=== PATIENT | male | born 1945 | race Caucasian/White ===

== ENCOUNTER 2017-11-23 03:32 | Emergency (ER) | payer MEDICARE ==
[~2017-11-23] VITALS: Ht 188 cm; Wt 88.5 kg
[~2017-11-23 03:32] MED LIST: Aspir 8181 MG
[2017-11-23 04:15] LABS: BASOPHILS ABSOLUTE AUTO 0.03 K/mm3 (0.00-0.23); BASOPHILS PERCENT AUTO 1 % (0-2); EOSINOPHILS PERCENT AUTO 4 % (0-6); Hematocrit 42.1 % (37.0-53.0); IMMATURE GRAN ABSOLUTE AUTO 0.02 K/mm3 (0.00-0.10); IMMATURE GRAN PERCENT AUTO 0 % (0-1); LYMPHOCYTES ABSOLUTE AUTO 1.57 K/mm3 (0.84-5.20); LYMPHOCYTES PERCENT AUTO 34 % (21-46); MONOCYTES ABSOLUTE AUTO 0.43 K/mm3 (0.16-1.47); MONOCYTES PERCENT AUTO 9 % (4-13); Mean Corpuscular HGB 31.9 pg (26.0-34.0); Mean Corpuscular HGB Conc 33.3 g/dL (31.5-36.5); Mean Corpuscular Volume 96 fL (80-100); Mean Platelet Volume 10.1 fL (9.1-12.4); NEUTROPHILS ABSOLUTE AUTO 2.31 K/mm3 (1.96-9.15); NEUTROPHILS PERCENT AUTO 51 % (41-73); Platelet Count 134 K/mm3 (150-400); RDW Coefficient Variation 11.8 % (11.7-14.2); RDW Standard Deviation 41.1 fL (35.1-46.3); Red Blood Cell Count 4.39 M/mm3 (4.30-5.90); White Blood Cell Count 4.56 K/mm3 (4.00-11.30)
[2017-11-23 04:28] LABS: Alanine Aminotransfer (ALT/SGP 24 U/L (12-78); Albumin, Blood 3.8 g/dL (3.4-5.0); Albumin/Globulin Ratio 1.2 (0.8-1.8); Alk Phos 54 U/L (50-136); Anion Gap 7 mmol/L (6-16); Aspartate Aminotrans (AST/SGOT 23 U/L (12-37); Bilirubin, Total 0.5 mg/dL (0.1-1.0); Blood Urea Nitrogen 19 mg/dL (8-24); Bun/Creatinine Ratio 17.9 (12.0-20.0); CO2, Blood 27 mmol/L (21-32); Calcium, Blood 8.6 mg/dL (8.5-10.1); Chloride, Blood 108 mmol/L (98-108); Creatinine, Blood 1.06 mg/dL (0.60-1.20); Globulin, Blood 3.2 g/dL (2.2-4.0); Glomerular Filtration Rate >60 (60-); Glucose, Blood 88 mg/dL (70-99); Potassium, Blood 3.9 mmol/L (3.5-5.5); Sodium, Blood 142 mmol/L (136-145); Troponin I <0.015 ng/mL (0.000-0.040)
[2017-11-23] MEDS ORDERED: ASPI325 PO (15:36)
[2017-11-23] MEDS ORDERED: NAPR220 PO (20:14)
== END 2017-11-23 06:21 | disposition home or self-care (01) ==
LOC: ER 03:32
PROVIDERS: Emergency Medicine
DX: R07.9 Chest pain, unspecified (principal); Z79.82 Long term (current) use of aspirin; Z87.891 Personal history of nicotine dependence
CPT/HCPCS: 36415; 71046; 80053; 83690; 84484; 85025; 93005; 93010; 96374; 99284; J1885

== ENCOUNTER 2017-11-23 14:57 | Observation (INO) | payer MEDICARE ==
[~2017-11-23] VITALS: Ht 188 cm; Wt 86.0 kg
[2017-11-23 15:30] LABS: BASOPHILS ABSOLUTE AUTO 0.02 K/mm3 (0.00-0.23); BASOPHILS PERCENT AUTO 0 % (0-2); EOSINOPHILS ABSOLUTE AUTO 0.15 K/mm3 (0.00-0.68); EOSINOPHILS PERCENT AUTO 3 % (0-6); Hematocrit 44.1 % (37.0-53.0); Hemoglobin 14.8 g/dL (13.5-17.5); IMMATURE GRAN ABSOLUTE AUTO 0.02 K/mm3 (0.00-0.10); IMMATURE GRAN PERCENT AUTO 0 % (0-1); LYMPHOCYTES ABSOLUTE AUTO 1.31 K/mm3 (0.84-5.20); LYMPHOCYTES PERCENT AUTO 28 % (21-46); MONOCYTES ABSOLUTE AUTO 0.36 K/mm3 (0.16-1.47); MONOCYTES PERCENT AUTO 8 % (4-13); Mean Corpuscular HGB 32.2 pg (26.0-34.0); Mean Corpuscular HGB Conc 33.6 g/dL (31.5-36.5); Mean Corpuscular Volume 96 fL (80-100); NEUTROPHILS PERCENT AUTO 60 % (41-73); Platelet Count 145 K/mm3 (150-400); RDW Coefficient Variation 11.9 % (11.7-14.2); RDW Standard Deviation 41.1 fL (35.1-46.3); Red Blood Cell Count 4.59 M/mm3 (4.30-5.90); White Blood Cell Count 4.66 K/mm3 (4.00-11.30)
[2017-11-23] MEDS ORDERED: ASPI325 PO (15:36)
[2017-11-23 15:49] LABS: Alanine Aminotransfer (ALT/SGP 25 U/L (12-78); Albumin, Blood 4.3 g/dL (3.4-5.0); Albumin/Globulin Ratio 1.3 (0.8-1.8); Alk Phos 60 U/L (50-136); Anion Gap 7 mmol/L (6-16); Aspartate Aminotrans (AST/SGOT 23 U/L (12-37); Bilirubin, Total 0.3 mg/dL (0.1-1.0); Blood Urea Nitrogen 24 mg/dL (8-24); Bun/Creatinine Ratio 19.8 (12.0-20.0); CO2, Blood 29 mmol/L (21-32); Calcium, Blood 8.7 mg/dL (8.5-10.1); Chloride, Blood 104 mmol/L (98-108); Creatinine, Blood 1.21 mg/dL (0.60-1.20); Globulin, Blood 3.3 g/dL (2.2-4.0); Glomerular Filtration Rate >60 (60-); Glucose, Blood 97 mg/dL (70-99); Potassium, Blood 4.2 mmol/L (3.5-5.5); Sodium, Blood 140 mmol/L (136-145); Total Protein, Blood 7.6 g/dL (6.4-8.2)
[2017-11-23] MEDS ORDERED: NAPR220 PO (20:14)
[2017-11-24 07:57] LABS: BASOPHILS ABSOLUTE AUTO 0.02 K/mm3 (0.00-0.23); BASOPHILS PERCENT AUTO 0 % (0-2); EOSINOPHILS ABSOLUTE AUTO 0.05 K/mm3 (0.00-0.68); EOSINOPHILS PERCENT AUTO 1 % (0-6); Hematocrit 41.4 % (37.0-53.0); Hemoglobin 13.8 g/dL (13.5-17.5); IMMATURE GRAN ABSOLUTE AUTO 0.01 K/mm3 (0.00-0.10); IMMATURE GRAN PERCENT AUTO 0 % (0-1); LYMPHOCYTES PERCENT AUTO 14 % (21-46); MONOCYTES ABSOLUTE AUTO 0.42 K/mm3 (0.16-1.47); MONOCYTES PERCENT AUTO 7 % (4-13); Mean Corpuscular HGB 32.1 pg (26.0-34.0); Mean Corpuscular HGB Conc 33.3 g/dL (31.5-36.5); Mean Corpuscular Volume 96 fL (80-100); Mean Platelet Volume 10.5 fL (9.1-12.4); NEUTROPHILS ABSOLUTE AUTO 4.99 K/mm3 (1.96-9.15); NEUTROPHILS PERCENT AUTO 78 % (41-73); Platelet Count 134 K/mm3 (150-400); RDW Coefficient Variation 11.9 % (11.7-14.2); RDW Standard Deviation 41.8 fL (35.1-46.3); White Blood Cell Count 6.39 K/mm3 (4.00-11.30)
[2017-11-24 08:17] LABS: Alanine Aminotransfer (ALT/SGP 22 U/L (12-78); Albumin, Blood 3.7 g/dL (3.4-5.0); Albumin/Globulin Ratio 1.2 (0.8-1.8); Alk Phos 55 U/L (50-136); Anion Gap 4 mmol/L (6-16); Aspartate Aminotrans (AST/SGOT 20 U/L (12-37); Bilirubin, Total 0.5 mg/dL (0.1-1.0); Blood Urea Nitrogen 17 mg/dL (8-24); Bun/Creatinine Ratio 18.3 (12.0-20.0); CO2, Blood 29 mmol/L (21-32); Calcium, Blood 8.6 mg/dL (8.5-10.1); Chloride, Blood 107 mmol/L (98-108); Creatinine, Blood 0.93 mg/dL (0.60-1.20); Globulin, Blood 3.1 g/dL (2.2-4.0); Glomerular Filtration Rate >60 (60-); Glucose, Blood 92 mg/dL (70-99); Potassium, Blood 3.8 mmol/L (3.5-5.5); Sodium, Blood 140 mmol/L (136-145); Total Protein, Blood 6.8 g/dL (6.4-8.2); Troponin I 0.194 ng/mL (0.000-0.040)
[2017-11-25 05:05] LABS: Anion Gap 9 mmol/L (6-16); Blood Urea Nitrogen 17 mg/dL (8-24); Bun/Creatinine Ratio 16.8 (12.0-20.0); CO2, Blood 24 mmol/L (21-32); Calcium, Blood 7.7 mg/dL (8.5-10.1); Chloride, Blood 106 mmol/L (98-108); Creatinine, Blood 1.01 mg/dL (0.60-1.20); Glomerular Filtration Rate >60 (60-); Glucose, Blood 91 mg/dL (70-99); Potassium, Blood 4.1 mmol/L (3.5-5.5); Sodium, Blood 139 mmol/L (136-145)
[2017-11-25] MEDS ORDERED: ATOR40TA PO (11:05)
[2017-11-25] MEDS ORDERED: CLOP75 PO (11:06)
[2017-11-25] MEDS ORDERED: LISI5 PO (11:06)
[2017-11-25] MEDS ORDERED: Nitrostat0.4 MG SL (11:09)
== END 2017-11-25 11:39 | disposition home or self-care (01) ==
LOC: ER 14:57 → PCU 14:58 → ER 14:58 → MEDS 14:58 → PCU 20:26
PROVIDERS: Emergency Medicine; Family Medicine; Internal Medicine Interventional Cardiology
PROC: B2111ZZ Fluoroscopy of Multiple Coronary Arteries using Low Osmolar Contrast (ICD-10-PCS; principal; 2017-11-24)
PROC: 0270346 Dilation of Coronary Artery, One Artery, Bifurcation, with Drug-eluting Intraluminal Device, Percutaneous Approach (ICD-10-PCS; principal; 2017-11-24)
PROC: B241ZZ3 Ultrasonography of Multiple Coronary Arteries, Intravascular (ICD-10-PCS; principal; 2017-11-24)
PROC: 02703DZ Dilation of Coronary Artery, One Artery with Intraluminal Device, Percutaneous Approach (ICD-10-PCS; principal; 2017-11-24)
DX: I25.110 Atherosclerotic heart disease of native coronary artery with unstable angina pectoris (principal); I10 Essential (primary) hypertension; G47.33 Obstructive sleep apnea (adult) (pediatric); H54.8 Legal blindness, as defined in USA; M50.30 Other cervical disc degeneration, unspecified cervical region; M51.37 Other intervertebral disc degeneration, lumbosacral region; R20.2 Paresthesia of skin; J45.909 Unspecified asthma, uncomplicated; Z85.46 Personal history of malignant neoplasm of prostate; Z90.79 Acquired absence of other genital organ(s); Z87.891 Personal history of nicotine dependence; Z79.1 Long term (current) use of non-steroidal anti-inflammatories (NSAID); Z98.890 Other specified postprocedural states; Z98.52 Vasectomy status; Z90.89 Acquired absence of other organs; I95.1 Orthostatic hypotension
CPT/HCPCS: 36415; 71046; 72040; 72070; 80048; 80053; 83690; 84484; 85025; 85347; 85730; 92921; 92978; 92979; 93005; 93010; 93454; 96374; 99152; 99153; 99284; 99285; C1725; C1753; C1769; C1874; C1894; C9600; G0378; J0360; J1644; J1885; J2250; J3010; J7030; J7040; Q9967

== ENCOUNTER → 2018-04-13 | Outpatient (CLI) | payer MEDICARE ==
[~2018-04-13] MED LIST changes: +ASPI325 PO; +ATOR40TA PO; +CLOP75 PO; +LISI5 PO; +NAPR220 PO; +Nitrostat0.4 MG SL
[2018-04-13 18:11] LABS: BASOPHILS ABSOLUTE AUTO 0.02 K/mm3 (0.00-0.23); BASOPHILS PERCENT AUTO 1 % (0-2); EOSINOPHILS ABSOLUTE AUTO 0.18 K/mm3 (0.00-0.68); EOSINOPHILS PERCENT AUTO 5 % (0-6); Hematocrit 37.7 % (37.0-53.0); IMMATURE GRAN ABSOLUTE AUTO 0.01 K/mm3 (0.00-0.10); IMMATURE GRAN PERCENT AUTO 0 % (0-1); LYMPHOCYTES ABSOLUTE AUTO 1.14 K/mm3 (0.84-5.20); LYMPHOCYTES PERCENT AUTO 29 % (21-46); MONOCYTES PERCENT AUTO 10 % (4-13); Mean Corpuscular HGB 33.5 pg (26.0-34.0); Mean Corpuscular HGB Conc 34.5 g/dL (31.5-36.5); Mean Corpuscular Volume 97 fL (80-100); Mean Platelet Volume 10.5 fL (9.1-12.4); NEUTROPHILS ABSOLUTE AUTO 2.21 K/mm3 (1.96-9.15); NEUTROPHILS PERCENT AUTO 56 % (41-73); Platelet Count 131 K/mm3 (150-400); RDW Coefficient Variation 12.1 % (11.7-14.2); Red Blood Cell Count 3.88 M/mm3 (4.30-5.90); White Blood Cell Count 3.96 K/mm3 (4.00-11.30)
[2018-04-13 18:25] LABS: Anion Gap 8 mmol/L (6-16); Blood Urea Nitrogen 26 mg/dL (8-24); CO2, Blood 26 mmol/L (21-32); Calcium, Blood 8.3 mg/dL (8.5-10.1); Chloride, Blood 105 mmol/L (98-108); Creatinine, Blood 1.24 mg/dL (0.60-1.20); Glomerular Filtration Rate 57 (60-); Glucose, Blood 94 mg/dL (70-99); Potassium, Blood 4.5 mmol/L (3.5-5.5); Sodium, Blood 139 mmol/L (136-145)
[2018-04-13 18:26] LABS: Troponin I <0.017 ng/mL (0.000-0.040)
== END ==
LOC: LAB SHORT 18:08
PROVIDERS: Family Medicine
DX: R53.83 Other fatigue (principal)
CPT/HCPCS: 80048; 83880; 84484; 85025

== ENCOUNTER 2019-01-31 05:56 | Day surgery (SDC) | payer MEDICARE ==
[~2019-01-31] VITALS: Ht 188 cm; Wt 88.6 kg
[~2019-01-31 05:56] MED LIST changes: +AMLO5; -ASPI325 PO; +ASPI81CH; -ATOR40TA PO; +LIVALO2 MG; +METO25ER
--- NOTE | 2019-01-31 09:07 | NUR ---
PT RETURN TO RECOVERY AREA AT APPROX 0843. AWAKE, CONVERSING WITH NURSING STAFF. NO BLEEDING OR SWELLING NOTED. NO C/O PAIN OR DISCOMFORT. CURRENTLY SITTING IN RECLINER EATING BREAKFAST (FINGER FOODS). TOLERATING PO INTAKE WELL.
--- NOTE | 2019-01-31 09:13 | NUR ---
PT IS "LEGALLY BLIND" PER . NOTICEABLE ISSUES WITH VISION. PRACTICED WITH CALL LIGHT USAGE FOR ASSISTANCE. PT ABLE TO FEEL/NAVIGATE USE OF CALL LIGHT. CLIPPED TO PILLOW IN LAP.
--- NOTE | 2019-01-31 11:03 | NUR ---
PT HAS NO C/O. RIGHT WRIST STABLE. NO BLEEDING NOTED. CMS INTACT. AT BEDSIDE.
--- NOTE | 2019-01-31 12:35 | NUR ---
2 cc air removed from TR band. Slight ooze. No air instilled.
--- NOTE | 2019-01-31 12:58 | NUR ---
REMAINDER OF AIR REMOVED FROM TR BAND. NO BLEEDING AT SITE.
--- NOTE | 2019-01-31 13:22 | NUR ---
PT TR BAND FULLY DEFLATED AT THIS TIME. INITIAL ATTEMPT APPROX 1 HR AGO UNSUCCESSFUL DUE TO SMALL AMOUNT OF BLEEDING. REINFLATED AND 30 MINUTES LATER ATTEMPTED DEFLATION AGAIN. PT NOW WITH TR BAND FULLY DEFLATED. CLOSE MONITORING TO ENSURE NO FURTHER BLEEDING. REVIEWED DISCHARGE INSTRUCTIONS WITH PATIENT AND , BOTH OF WHOM VERBALIZE UNDERSTANDING OF ALL AND ARE ABLE TO VERBALIZE BACK IMPORTANT POINTS WITH THOROUGH UNDERSTANDING.
--- NOTE | 2019-01-31 14:07 | NUR ---
PT DRESSED SELF WITH ASSISTANCE OF . SMALL AMOUNT OF OOZING AT RIGHT WRIST SITE WITH DIME SIZED HEMATOMA. PRESSURE HELD x 5 MINUTES WITH RESOLUTION OF SYMPTOMS. WOUND DRESSED AND STABILIZED WITH ARM BOARD. RECHECK PRIOR TO DISCHARGE WITH NO FURTHER ISSUES. CMS INTACT TO RIGHT HAND. CAP REFILL BRISK. NO FURTHER SIGNS OF BLEEDING. IV D/C TIP INTACT. D/C HOME WITH TO DRIVE HIM AT THIS TIME.
== END 2019-01-31 14:10 | disposition home or self-care (01) ==
LOC: MHTC 05:56
DX: T82.855A Stenosis of coronary artery stent, initial encounter (principal); I25.10 Atherosclerotic heart disease of native coronary artery without angina pectoris; E78.5 Hyperlipidemia, unspecified; G47.33 Obstructive sleep apnea (adult) (pediatric); N18.9 Chronic kidney disease, unspecified; I67.9 Cerebrovascular disease, unspecified; H54.7 Unspecified visual loss; Z79.82 Long term (current) use of aspirin; Z79.899 Other long term (current) drug therapy; Z87.891 Personal history of nicotine dependence
CPT/HCPCS: 85347; 92978; 93458; 99152; 99153; C1725; C1753; C1769; C1874; C1887; C1894; C9600; J1644; J2250; J3010; J7030; Q9967

== ENCOUNTER 2021-03-04 10:47 | Day surgery (SDC) | payer MEDICARE ==
[~2021-03-04] VITALS: Ht 188 cm; Wt 87.0 kg
== END 2021-03-04 13:37 | disposition home or self-care (01) ==
LOC: ORSCSDS 10:47
PROVIDERS: Internal Medicine Gastroenterology
PROC: 0DBL8ZX Excision of Transverse Colon, Via Natural or Artificial Opening Endoscopic, Diagnostic (ICD-10-PCS; principal; 2021-03-04 12:00)
PROC: 0DBM8ZX Excision of Descending Colon, Via Natural or Artificial Opening Endoscopic, Diagnostic (ICD-10-PCS; principal; 2021-03-04 12:00)
DX: R19.4 Change in bowel habit (principal); Z86.010 Personal history of colon polyps; D12.3 Benign neoplasm of transverse colon; D12.4 Benign neoplasm of descending colon; K64.4 Residual hemorrhoidal skin tags; Z79.899 Other long term (current) drug therapy; Z79.82 Long term (current) use of aspirin; G47.33 Obstructive sleep apnea (adult) (pediatric); I25.10 Atherosclerotic heart disease of native coronary artery without angina pectoris; Z87.891 Personal history of nicotine dependence
CPT/HCPCS: 88305; J2704; J7120

== ENCOUNTER → 2021-07-26 | Outpatient (CLI) | payer MEDICARE ==
[2021-07-26 13:06] LABS: Source, Urine Clean Catch
[2021-07-26 13:53] LABS: Appearance, Urine Clear (Clear); Bilirubin, Urine Neg (Neg); Blood, Urine Neg (Neg); Color, Urine Yellow (P-Yellow); Glucose Qualitative, Urine Neg (Neg); Ketones, Urine Neg (Neg); Leukocyte Esterase, Urine Neg (Neg); Nitrite, Urine Neg (Neg); Protein, Urine Neg (Neg); Urobilinogen, Urine NORM (Normal)
[2021-07-26 14:21] LABS: Creatinine, Urine Random 35.4 mg/dL (27.00-270.00); Protein, Urine Random 7.5 mg/dL (0.0-11.9); Protein/Creat Ratio, Ur Random 0.2
== END | disposition home or self-care (01) ==
LOC: LAB SHORT 13:02
PROVIDERS: Internal Medicine
DX: N18.31 Chronic kidney disease, stage 3a (principal)
CPT/HCPCS: 81003; 82570; 84156

== ENCOUNTER 2022-06-21 09:21 | Inpatient (IN) | payer MEDICARE ==
[~2022-06-21] VITALS: Ht 188 cm; Wt 86.8 kg
[~2022-06-21 09:21] MED LIST changes: -AMLO5; +AMLO5 PO; -ASPI81CH; +ASPI81CH PO; +CARV3.125 PO; +GABA300 PO; -LIVALO2 MG; +LIVALO2 MG PO; +MULVITA PO; +OLME5TAB PO; +VITAMIN D310 MC4 PO
--- NOTE | 2022-06-21 19:21 | NUR ---
ADMIT NOTE PATIENT NEW ADMIT TO UNIT POST OP DAY 0 L REVERSE TOTAL SHOULDER. AQUACEL C/D/I. POLAR PACK AND SLING IN PLACE TO LEFT ARM. PATIENT GROGGY, SLOW TO RESPOND, BUT ANSWERS APPROPRIATELY. PATIENT LEGALLY BLIND. PERSONAL ITEMS, WATER, AND CALL LIGHT ALL PLACED WITHIN REACH AT RIGHT BEDSIDE. PATIENT INSTRUCTED ON USE OF CALL LIGHT. ABLE TO WIGGLE LEFT FINGERS BUT DENIES SENSATION. LEFT HAND WARM. TOLERATING SIPS OF WATER, LR RUNNING THROUGH IV. REPORT GIVEN TO METAL FITTER RN.
--- NOTE | 2022-06-22 04:08 | NUR ---
SHIFT SUMMARY A/O X4- POD1 L REVERSE TOTAL SHOULDER- AQUACEL IN PLACE C/D/I, SLING AND POLAR PACK ALSO IN PLACE. PT REPORTS THAT L HAND IS STARTING TO FEEL LIKE IT IS "TINGLING," AND HE IS ABLE TO MOVE HIS HAND AT THIS TIME. L HAND REMAINS WARM TO TOUCH AND PULSES PRESENT. NO PAIN REPORTED. PT AMBULATED TO THE BATHROOM AND VOIDED WELL. TOLERATING PO INTAKE. VITAL SIGNS STABLE. WILL CONTINUE TO MONITOR AND REPORT TO ONCOMING RN.
[2022-06-22 05:23] LABS: BASOPHILS ABSOLUTE AUTO 0.01 K/mm3 (0.00-0.23); BASOPHILS PERCENT AUTO 0 % (0-2); EOSINOPHILS PERCENT AUTO 0 % (0-6); Hematocrit 39.5 % (37.0-53.0); Hemoglobin 13.2 g/dL (13.5-17.5); IMMATURE GRAN ABSOLUTE AUTO 0.05 K/mm3 (0.00-0.10); IMMATURE GRAN PERCENT AUTO 0 % (0-1); LYMPHOCYTES ABSOLUTE AUTO 0.63 K/mm3 (0.84-5.20); LYMPHOCYTES PERCENT AUTO 5 % (21-46); MONOCYTES ABSOLUTE AUTO 0.52 K/mm3 (0.16-1.47); MONOCYTES PERCENT AUTO 4 % (4-13); Mean Corpuscular HGB 32.8 pg (26.0-34.0); Mean Corpuscular HGB Conc 33.4 g/dL (31.5-36.5); Mean Corpuscular Volume 98 fL (80-100); Mean Platelet Volume 10.1 fL (9.1-12.4); NEUTROPHILS ABSOLUTE AUTO 10.56 K/mm3 (1.96-9.15); NEUTROPHILS PERCENT AUTO 90 % (41-73); Platelet Count 148 K/mm3 (150-400); RDW Coefficient Variation 11.9 % (11.7-14.2); RDW Standard Deviation 42.8 fL (35.1-46.3); Red Blood Cell Count 4.03 M/mm3 (4.30-5.90); White Blood Cell Count 11.77 K/mm3 (4.00-11.30)
[2022-06-22 06:01] LABS: Bun/Creatinine Ratio 21.1 (12.0-20.0); Calcium, Blood 8.6 mg/dL (8.5-10.1); Creatinine, Blood 1.09 mg/dL (0.60-1.20); Potassium, Blood 4.8 mmol/L (3.5-5.5)
[2022-06-22] MEDS ORDERED: Percocet 5-3251 EACH PO (07:51)
--- NOTE | 2022-06-22 09:35 | NUR ---
DISCHARGE NOTE: PATIENT AND WERE EDUCATED ON DISCHARGE INSTRUCTIONS BOTH VERBALIZED UNDERSTANDING OF INSTRUCTIONS. HARD PERSCRIPTION WAS GIVEN TO WHO PLACED IT IN HER PURSE. IV WAS TAKEN OUT AND WNL. PAIN IS MANAGED WITH PO PAIN MEDICATION. LEFT SHOULDER HAS AN AQUACEL THAT IS C/D/I AND HAS HIS ARM IN A SLING. PATIENT IS ABLE TO MOVE FINGERS AND TOES WHEN ASKED. PATIENT IS TOLERATING PO INTAKE AND IS VOIDING. HE IS DRESSED AND HAS ITEMS IN THE ROOM GATHERED. PATIENT IS WALKING OUT TO THE CAR WITH HIS TO BE TAKEN HOME.
== END 2022-06-22 09:30 | disposition home or self-care (01) | DRG 483 ==
LOC: SURS 09:21 → PRE IP 11:00 → SURS 18:30
PROVIDERS: ADMIT Orthopaedic Surgery
PROC: 0RRK00Z Replacement of Left Shoulder Joint with Reverse Ball and Socket Synthetic Substitute, Open Approach (ICD-10-PCS; principal; 2022-06-21 11:00)
DX: M19.012 Primary osteoarthritis, left shoulder (principal); N18.9 Chronic kidney disease, unspecified; G47.33 Obstructive sleep apnea (adult) (pediatric); E78.00 Pure hypercholesterolemia, unspecified; I10 Essential (primary) hypertension; I25.10 Atherosclerotic heart disease of native coronary artery without angina pectoris; D69.6 Thrombocytopenia, unspecified; Z96.1 Presence of intraocular lens; Z98.42 Cataract extraction status, left eye; Z95.5 Presence of coronary angioplasty implant and graft; Z87.891 Personal history of nicotine dependence; Z98.890 Other specified postprocedural states; Z98.52 Vasectomy status; Z79.899 Other long term (current) drug therapy; Z79.82 Long term (current) use of aspirin; Z88.8 Allergy status to other drugs, medicaments and biological substances
CPT/HCPCS: 36415; 73030; 80048; 85025; 97110; 97116; 97162; 97166; 97530; 97535; A9270; C1776; J0171; J0690; J1100; J1885; J2250; J2405; J2704; J3010; J3370; J7120

== ENCOUNTER 2023-05-05 03:52 | Emergency (ER) | payer OTHER ==
[~2023-05-05] VITALS: Ht 188 cm; Wt 86.2 kg
[~2023-05-05 03:52] MED LIST changes: +Percocet 5-3251 EACH PO
[2023-05-05 05:30] LABS: BASOPHILS ABSOLUTE AUTO 0.04 K/mm3 (0.00-0.23); BASOPHILS PERCENT AUTO 1 % (0-2); EOSINOPHILS ABSOLUTE AUTO 0.32 K/mm3 (0.00-0.68); EOSINOPHILS PERCENT AUTO 5 % (0-6); Hematocrit 37.6 % (37.0-53.0); Hemoglobin 12.6 g/dL (13.5-17.5); IMMATURE GRAN ABSOLUTE AUTO 0.03 K/mm3 (0.00-0.10); IMMATURE GRAN PERCENT AUTO 1 % (0-1); LYMPHOCYTES ABSOLUTE AUTO 1.09 K/mm3 (0.84-5.20); LYMPHOCYTES PERCENT AUTO 17 % (21-46); MONOCYTES ABSOLUTE AUTO 0.45 K/mm3 (0.16-1.47); MONOCYTES PERCENT AUTO 7 % (4-13); Mean Corpuscular HGB 32.6 pg (26.0-34.0); Mean Corpuscular HGB Conc 33.5 g/dL (31.5-36.5); Mean Corpuscular Volume 97 fL (80-100); Mean Platelet Volume 9.2 fL (9.1-12.4); NEUTROPHILS ABSOLUTE AUTO 4.59 K/mm3 (1.96-9.15); NEUTROPHILS PERCENT AUTO 70 % (41-73); Platelet Count 159 K/mm3 (150-400); RDW Coefficient Variation 11.8 % (11.7-14.2); Red Blood Cell Count 3.86 M/mm3 (4.30-5.90); White Blood Cell Count 6.52 K/mm3 (4.00-11.30)
[2023-05-05 05:55] LABS: Albumin, Blood 3.6 g/dL (3.4-5.0); Albumin/Globulin Ratio 1.1 (0.8-1.8); Bilirubin, Total 0.5 mg/dL (0.1-1.0); Bun/Creatinine Ratio 19.9 (12.0-20.0); Calcium, Blood 9.1 mg/dL (8.5-10.1); Creatinine, Blood 1.36 mg/dL (0.60-1.20); Globulin, Blood 3.2 g/dL (2.2-4.0); Potassium, Blood 4.6 mmol/L (3.5-5.5); Total Protein, Blood 6.8 g/dL (6.4-8.2)
[2023-05-05 07:51] VITALS: BP 173/85
== END 2023-05-05 07:52 | disposition home or self-care (01) ==
LOC: ER 03:52
PROVIDERS: Student in an Organized Health Care Education/Training Program
DX: M25.562 Pain in left knee (principal); I25.10 Atherosclerotic heart disease of native coronary artery without angina pectoris; E78.5 Hyperlipidemia, unspecified; Z85.46 Personal history of malignant neoplasm of prostate; Z88.6 Allergy status to analgesic agent; Z88.8 Allergy status to other drugs, medicaments and biological substances; Z79.02 Long term (current) use of antithrombotics/antiplatelets; Z79.82 Long term (current) use of aspirin; Z79.899 Other long term (current) drug therapy; Z87.891 Personal history of nicotine dependence
CPT/HCPCS: 80053; 85025; 96374; 99283-25; A9270; J3010

== ENCOUNTER → 2023-06-16 | Outpatient (CLI) | payer OTHER | LOC: LAB SHORT 07:00 → LAB 07:00 | DX: R05.9 Cough, unspecified (principal) | CPT/HCPCS: 87070; 87205 ==

== ENCOUNTER 2024-02-27 07:34 | Day surgery (SDC) | payer OTHER ==
[~2024-02-27] VITALS: Ht 188 cm; Wt 77.5 kg
[~2024-02-27 07:34] MED LIST changes: +Lactated Ringer's 1,000 ML IV ONE; +propofoL 50 ML IV ONE
[2024-02-27] MEDS ORDERED: Lactated Ringer's 1,000 ML IV ONE (08:00)
[2024-02-27 09:17] VITALS: BP 130/77
== END 2024-02-27 09:19 | disposition home or self-care (01) ==
LOC: ORSCSDS 07:34
PROVIDERS: Specialist
PROC: 0DBL8ZX Excision of Transverse Colon, Via Natural or Artificial Opening Endoscopic, Diagnostic (ICD-10-PCS; principal; 2024-02-27 08:45)
DX: Z12.11 Encounter for screening for malignant neoplasm of colon (principal); Z86.010 Personal history of colon polyps; D12.3 Benign neoplasm of transverse colon; D12.4 Benign neoplasm of descending colon; K57.30 Diverticulosis of large intestine without perforation or abscess without bleeding; K64.8 Other hemorrhoids; I25.10 Atherosclerotic heart disease of native coronary artery without angina pectoris; G47.30 Sleep apnea, unspecified; Z79.02 Long term (current) use of antithrombotics/antiplatelets; Z85.46 Personal history of malignant neoplasm of prostate; Z79.899 Other long term (current) drug therapy
CPT/HCPCS: J2704; J7120

== ENCOUNTER 2025-08-05 18:41 | Emergency (ER) | payer OTHER ==
[~2025-08-05] VITALS: Ht 188 cm; Wt 86.2 kg
[~2025-08-05 18:41] MED LIST changes: -Lactated Ringer's 1,000 ML IV ONE; -propofoL 50 ML IV ONE
[2025-08-05] MEDS ORDERED: Labetalol HCL 5 MG/ML 4ML Injection (Single Dose) ONE (18:58)
[2025-08-05 19:00] LABS: BASOPHILS ABSOLUTE AUTO 0.03 K/mm3 (0.00-0.23); BASOPHILS PERCENT AUTO 0 % (0-2); EOSINOPHILS ABSOLUTE AUTO 0.31 K/mm3 (0.00-0.68); EOSINOPHILS PERCENT AUTO 5 % (0-6); Hematocrit 41.8 % (37.0-53.0); Hemoglobin 14.2 g/dL (13.5-17.5); IMMATURE GRAN ABSOLUTE AUTO 0.03 K/mm3 (0.00-0.10); IMMATURE GRAN PERCENT AUTO 0 % (0-1); LYMPHOCYTES ABSOLUTE AUTO 1.71 K/mm3 (0.84-5.20); LYMPHOCYTES PERCENT AUTO 25 % (21-46); MONOCYTES ABSOLUTE AUTO 0.51 K/mm3 (0.16-1.47); MONOCYTES PERCENT AUTO 8 % (4-13); Mean Corpuscular HGB Conc 34.0 g/dL (31.5-36.5); Mean Corpuscular Volume 94 fL (80-100); NEUTROPHILS ABSOLUTE AUTO 4.20 K/mm3 (1.96-9.15); NEUTROPHILS PERCENT AUTO 62 % (41-73); NRBC ABSOLUTE 0.00 K/mm3 (0.00-0.02); NRBC Auto 0.0 /100 WBC (0.0-0.2); Platelet Count 182 K/mm3 (150-400); RDW Coefficient Variation 12.3 % (11.7-14.2); RDW Standard Deviation 42.7 fL (35.1-46.3)
[2025-08-05] MEDS ORDERED: Labetalol HCL 5 MG/ML 20MLVIAL IV ONE (19:00)
[2025-08-05 19:15] LABS: Prothrombin Time Results 11.0 Sec (9.7-11.5)
[2025-08-05 19:34] LABS: Alanine Aminotransfer (ALT/SGP 28.0 U/L (12-78); Albumin, Blood 4.1 g/dL (3.4-5.0); Albumin/Globulin Ratio 1.2 (0.8-1.8); Anion Gap 8.0 mmol/L (3-11); Aspartate Aminotrans (AST/SGOT 23.0 U/L (12-37); Bilirubin, Total 0.3 mg/dL (0.1-1.0); Blood Urea Nitrogen 26.0 mg/dL (8-24); CO2, Blood 25.0 mmol/L (21-32); Calcium, Blood 9.8 mg/dL (8.5-10.1); Chloride, Blood 106.0 mmol/L (98-108); Creatinine, Blood 1.31 mg/dL (0.60-1.20); Globulin, Blood 3.5 g/dL (2.2-4.0); Glucose, Blood 140.0 mg/dL (70-99); Potassium, Blood 4.2 mmol/L (3.5-5.5); Sodium, Blood 135.0 mmol/L (136-145); Total Protein, Blood 7.6 g/dL (6.4-8.2)
[2025-08-05 19:53] VITALS: BP 138/71
== END 2025-08-05 20:29 | disposition short-term general hospital (02) ==
LOC: ER 18:41
PROVIDERS: Emergency Medicine
DX: I61.1 Nontraumatic intracerebral hemorrhage in hemisphere, cortical (principal); I60.7 Nontraumatic subarachnoid hemorrhage from unspecified intracranial artery; G81.94 Hemiplegia, unspecified affecting left nondominant side
CPT/HCPCS: 70450; 70496; 70498; 80053; 82947; 84484; 85025; 85610; 85730; 93005; 93010; 96365-59; 96375-59; 99285-25; J2597; Q9967